=== PATIENT | male | born 2000 | race Hispanic/Latino ===

== ENCOUNTER → 2023-11-23 | Outpatient (REF) | LOC: M PLAIMG 10:43 | PROVIDERS: ATTEND Nurse Practitioner Family | DX: Z00.00 Encounter for general adult medical examination without abnormal findings (principal) ==

== ENCOUNTER → 2024-03-12 | Outpatient (CLI) | payer OTHER ==
[~2024-03-12] MED LIST: ISOVUE-300 61% 100ML VIAL As Ordered ONE; LIDOCAINE 1% MDV 20ML VIAL As Ordered ONE; PROHANCE 279.3MG/ML 5ML VIAL As Ordered ONE
== END ==
LOC: M RAD 08:35
PROVIDERS: ATTEND Physician Assistant
DX: M25.511 Pain in right shoulder (principal); M24.811 Other specific joint derangements of right shoulder, not elsewhere classified
CPT/HCPCS: 23350; 73223; 77002; A9576; Q9967